=== PATIENT | female | born 1940 | race Caucasian/White ===

== ENCOUNTER 2016-10-22 10:04 | Outpatient (CLI) | payer MEDICARE, BC ==
[~2016-10-22] VITALS: Ht 170.2 cm; Wt 63.6 kg
[~2016-10-22 10:04] MED LIST: ALEVE 220MG220 MG PO; ASPIRIN E.C. 8181 MG PO; CARDI-OMEGA1000 MG PO; ICAPS LUTEIN &1 TAB PO; LIPITOR 40MG TA40 MG PO; MULTIPLE VITAMI1 CAP PO; PRILOSEC10 MG PO; TOPROL XL 25MG25 MG PO; TYLENOL 500MG500 MG PO; VITAMIN C500 MG PO; VITAMIN D2000 I1 PO
[2016-10-22 10:29] VITALS: BP 100/66; PULSE 62; TEMP 97.6
== END 2016-10-22 12:48 | disposition home or self-care (01) ==
LOC: EUO 10:04
DX: M81.0 Age-related osteoporosis without current pathological fracture (principal)
CPT/HCPCS: J3489

== ENCOUNTER → 2016-11-14 | Outpatient (CLI) | payer MEDICARE, BC | LOC: MC.RAD 13:51 | DX: Z12.31 Encounter for screening mammogram for malignant neoplasm of breast (principal) ==

== ENCOUNTER 2017-11-05 11:45 | Outpatient (CLI) | payer MEDICARE, BC ==
[~2017-11-05] VITALS: Ht 170.2 cm; Wt 66.6 kg
[2017-11-05 12:00] VITALS: BP 123/65; PULSE 57; TEMP 97.6
== END 2017-11-05 13:05 | disposition home or self-care (01) ==
LOC: EUO 11:45
DX: M81.0 Age-related osteoporosis without current pathological fracture (principal)
CPT/HCPCS: J3489

== ENCOUNTER → 2018-01-19 | Outpatient (CLI) | payer MEDICARE, BC | LOC: MC.RAD 11:00 | DX: Z12.31 Encounter for screening mammogram for malignant neoplasm of breast (principal) ==

== ENCOUNTER → 2019-01-20 | Outpatient (CLI) | payer MEDICARE, BC | LOC: MC.RAD 10:41 | DX: Z12.31 Encounter for screening mammogram for malignant neoplasm of breast (principal); Z98.890 Other specified postprocedural states ==

== ENCOUNTER → 2020-01-27 | Outpatient (CLI) | payer MEDICARE, BC | LOC: MC.RAD 11:21 | DX: Z12.31 Encounter for screening mammogram for malignant neoplasm of breast (principal) ==

== ENCOUNTER → 2021-03-07 | Outpatient (CLI) | payer MEDICARE, BC | LOC: MC.RAD 13:04 | DX: Z12.31 Encounter for screening mammogram for malignant neoplasm of breast (principal); R91.8 Other nonspecific abnormal finding of lung field ==

== ENCOUNTER → 2021-03-09 | Outpatient (CLI) | payer MEDICARE, BC | LOC: MC.RAD 12:55 | DX: R92.8 Other abnormal and inconclusive findings on diagnostic imaging of breast (principal) ==

== ENCOUNTER → 2021-03-27 | Outpatient (CLI) | payer MEDICARE, BC | LOC: MC.RAD 09:51 | DX: N60.12 Diffuse cystic mastopathy of left breast (principal); R92.0 Mammographic microcalcification found on diagnostic imaging of breast ==

== ENCOUNTER → 2023-05-21 | Outpatient (CLI) | payer MEDICARE | LOC: MC.RAD 09:33 | DX: Z12.31 Encounter for screening mammogram for malignant neoplasm of breast (principal) ==